=== PATIENT | female | born 1985 | race Two or more races ===

== ENCOUNTER 2016-11-05 12:24 | Emergency (ER) | payer OTHER ==
[2016-11-05] MEDS ORDERED: SODIUM CHLORIDE 0.9% 1,000 ML IV ONE ×2 (13:06→13:07)
[2016-11-05] MEDS ORDERED: DIPHENOX/ATROPINE 2.5/0.025 MG TABLET PO STA (13:06)
[2016-11-05] MEDS ORDERED: ACETAMINOPHEN 1,000 MG/100 ML 100 ML IV STA (13:06)
[2016-11-05] MEDS ORDERED: ONDANSETRON 4 MG/2 ML VIAL IVP STA (13:06)
[2016-11-05] MEDS ORDERED: ACETAMINOPHEN 1,000 MG/100 ML 100 ML IV ONE (13:10)
[2016-11-05] MEDS ORDERED: ONDANSETRON 4 MG/2 ML VIAL ONE (13:10)
[2016-11-05] MEDS ORDERED: DIPHENOX/ATROPINE 2.5/0.025 MG TABLET PO ONE (13:10)
[2016-11-05] MEDS ORDERED: KETOROLAC 60 MG/2 ML VIAL IVP STA (14:31)
[2016-11-05] MEDS ORDERED: KETOROLAC 30 MG/ML VIAL ONE (14:37)
[2016-11-05] MEDS ORDERED: MAG HYDROX/AL HYDROX/SIMETH 30 ML UDC PO STA (15:13)
[2016-11-05] MEDS ORDERED: MAG HYDROX/AL HYDROX/SIMETH 30 ML UDC ONE (15:24)
== END 2016-11-05 16:13 | disposition home or self-care (01) ==
DX: A08.4 Viral intestinal infection, unspecified (principal); E86.0 Dehydration
CPT/HCPCS: 36415; 80053; 83690; 83735; 85025; 96365; 96375; 99283; 99284; A9270; J0131